=== PATIENT | female | born 1940 | race Caucasian/White ===

== ENCOUNTER 2016-11-02 06:25 | Observation (INO) | payer MEDICARE, BC ==
[~2016-11-02] VITALS: Ht 160 cm; Wt 64.6 kg
[2016-11-02] VITALS (17 sets, daily range): BP systolic 113–144; BP diastolic 54–79
[~2016-11-02 06:25] MED LIST: ASPI-482 PO; CHOL10003 PO; DOCU50CA9 PO; EZET10TA3 PO; FISH1CAP PO; RED600TA PO
[2016-11-02 06:59] LABS: HEMOGLOBIN 13.2 g/dL (12.0-15.5); RED BLOOD COUNT 4.44 x10^6/uL (3.50-5.40); RED CELL DISTRIBUTION WIDTH 13.8 % (11.5-14.5); WHITE BLOOD COUNT 8.9 x10^3/uL (4.0-11.0)
[2016-11-02] MEDS ORDERED: IV NORMAL SALINE 1000ML BAG 1,000 ML IV SCH (07:00)
[2016-11-02] MEDS ORDERED: IODIXANOL 320 MG/ML 100 ML VIAL. ONE ×2 (07:09→09:27)
[2016-11-02] MEDS ORDERED: LIDOCAINE 2% 20 ML VIAL. ONE (07:09)
[2016-11-02] MEDS ORDERED: METO25TA4 PO (07:11)
[2016-11-02] MEDS ORDERED: NAPR220C4 PO (07:11)
[2016-11-02 07:20] LABS: INR 1.1 (0.8-1.1); PROTHROMBIN TIME PATIENT 13.1 SEC (11.7-14.0)
[2016-11-02 07:37] LABS: CALCIUM 9.2 mg/dL (8.5-10.1); CREATININE 0.6 mg/dL (0.6-1.0); GFR 97.5; POTASSIUM 4.4 mmol/L (3.5-5.1)
[2016-11-02] MEDS ORDERED: LIDOCAINE 2% 20 ML VIAL. IJ ONE (08:00)
[2016-11-02] MEDS ORDERED: VERAPAMIL 5 MG/2 ML VIAL. IART ONE (08:00)
[2016-11-02] MEDS ORDERED: MIDAZOLAM HCL/PF 2 MG/2 ML VIAL. IV ONE (08:00)
[2016-11-02] MEDS ORDERED: NITROGLYCERIN 200 MCG/2 ML SYRINGE FOR CATH/VASC LAB. IART ONE (08:00)
[2016-11-02] MEDS ORDERED: FENTANYL PF 100 MCG/2 ML VIAL. IV ONE (08:00)
[2016-11-02] MEDS ORDERED: HEPARIN for IV BOLUS 10,000 UNIT/10 ML VIAL. IART ONE (08:00)
[2016-11-02] MEDS ORDERED: NITROGLYCERIN 200 MCG/2 ML SYRINGE FOR CATH/VASC LAB. ONE (08:18)
[2016-11-02] MEDS ORDERED: VERAPAMIL 5 MG/2 ML VIAL. ONE (08:18)
[2016-11-02] MEDS ORDERED: HEPARIN for IV BOLUS 10,000 UNIT/10 ML VIAL. ONE (08:18)
[2016-11-02] MEDS ORDERED: MIDAZOLAM HCL/PF 2 MG/2 ML VIAL. ONE ×2 (08:18→09:24)
[2016-11-02] MEDS ORDERED: FENTANYL PF 100 MCG/2 ML VIAL. ONE ×2 (08:19→09:24)
[2016-11-02] MEDS ORDERED: ADENOSINE 90 MG/30 ML VIAL. IV ONE (09:11)
[2016-11-02] MEDS ORDERED: ADENOSINE 90 MG in IV NORMAL SALINE 50ML 90 ML IV ONE (09:30)
[2016-11-02] MEDS ORDERED: BIVALIRUDIN 250 MG VIAL. IV ONE ×2 (09:42→10:15)
[2016-11-02] MEDS ORDERED: HEPARIN for IV BOLUS 10,000 UNIT/10 ML VIAL. IV ONE (10:00)
[2016-11-02] MEDS ORDERED: CLOPIDOGREL BISULFATE 75 MG TABLET ONE (10:00)
[2016-11-02] MEDS ORDERED: ASPIRIN 325 MG TABLET ONE ×2 (10:00→10:17)
[2016-11-02] MEDS ORDERED: ASPIRIN 325 MG TABLET PO ONE (10:15)
[2016-11-02] MEDS ORDERED: CLOPIDOGREL BISULFATE 75 MG TABLET PO ONE (10:15)
[2016-11-02] MEDS ORDERED: ACETAMINOPHEN 325 MG TABLET. PO PRN (10:30)
[2016-11-02] MEDS ORDERED: IODIXANOL 320 MG/ML 100 ML VIAL. IART ONE (10:30)
[2016-11-02] MEDS ORDERED: NITROGLYCERIN SUBLINGUAL 0.4 MG BOTTLE OF 25. SL PRN (10:30)
--- NOTE | 2016-11-02 10:30 | PDOC ---
MODERATE SEDATION ASSESSMENT RISKS/ALTERNATIVES Risks/Alternatives Risks and alternatives of this type of sedation and procedure discussed with: RISK/ALTERNATIVES: Patient H & P ON CHART H & P H & P on chart and reviewed for co-morbid conditions and appropriate labs. H&P ON CHART: Yes STATUS PREG STATUS ASSESSED: N/A MEDS/ALLERGIES REVIEWED Meds/Allergies Reviewed Medications and Allergies including time and route of recently administered narcotics and sedatives. MEDS/ALLERGIES REVIEWED: Yes ASA RATING ASA RATING: II AIRWAY ASSESSMENT Airway Assessment Airway patency, oral function limitations, presence of caps, crowns, dentures, partials, and ability to extend neck assessed. AIRWAY ASSESSMENT: Yes MALLAMPATI SCORE MALLAMPATI SCORE: II PRE-SEDATION ASSESSMENT PRE-SEDATION ASSESSMENT: Yes AILEEN BOB MD Nov 02, 2016 10:30
--- NOTE | 2016-11-02 10:52 | CARD ---
APPROVED REPORT Procedure(s) performed: 1. Left heart catheterization and selective coronary angiography via right t ransradial approach 2. Fractional flow reserve measurement the left anterior descending and right coronary arteries 3. Successful PCI/drug eluting stent placement to the left anterior descending artery INDICATION The indication(s) include : Unstable angina and positive stress test. PROCEDURE NARRATIVE After explaining the risks, benefits and alternative options, informed consent was obtained from felipe ent. Patient was brought to the cardiac Condominium Manager and his right wrist was prepped and draped in the us ual fashion after confirming a positive modified Timur's test. Arterial access was obtained in the [facility] radial artery and a 6 [place] sheath was inserted. 6 [place] JL 3.5 and 6 [place] JR4 catheters were used to perform selective angiography of the left and right coronary arteries after initial attempts to engage these vessels using 6 [place] Shamar catheter were unsuccessful. Left ventricular end-diast olic pressure and transaortic gradients remeasured. Left ventriculography was not performed due to re cent noninvasive assessment of ejection fraction. Since patient was found to have angiographically borderline significant stenoses involving the left anterior descending and right coronary arteries, a decision was made to assess the physiologic signif icance by performing fractional flow reserve measurement. The left main coronary artery was engaged w ith 6 [place] AL 0.75 guide catheter and the stenosis in the midsegment was crossed with [employer] Ver[employer] ta PressureWire. FFR measurement was made after administering intravenous adenosine per protocol. Thi s came back physiologically not significant at 0.79. This lesion was intervened upon as described bel ow. Subsequently, the right coronary artery was engaged with the same guide catheter and the ostial s egment stenosis was crossed with the same PressureWire and FFR measurement was made. This came back p hysiologically not significant at 0.86 and hence this was not intervened upon. FINDINGS 1. Hemodynamics: Left ventricle end-diastolic pressure 15 mmHg. No pullback gradient across the aor tic valve. 2. Coronary angiography: a. The left main coronary artery arose from the left sinus of Valsalva, gave rise to the left anteri or descending and left circumflex arteries and did not show any significant stenosis. b. The left anterior descending artery showed a widely patent stent in the midsegment. Just distal t o this stent, 60-70% stenosis was noted there was physiologically significant based on FFR measuremen t of 0.79. The diagonal branch showed widely patent stent in the proximal segment. There was a 50% st enosis noted in the midsegment. c. The left circumflex artery did not show any significant stenosis. d. The right coronary artery was a dominant vessel arising from the right sinus of Valsalva that miroslava wed 40% stenosis in the ostial segment with dampening of pressure waveform. This was however physiolo gically not significant based on FFR measurement of 0.86. INTERVENTION The left main coronary artery as previously engaged with AL 0.75 guide catheter for FFR measurement a s described above. Since the stenosis in the midsegment of the left anterior descending artery was fo und to be physiologically significant based on FFR measurement of 0.79, we decided to intervene on th e stenosis. This was successfully and directly treated with a 2.75 x 12 mm Xience Alpine drug-eluting stent that was advanced over the previously placed PressureWire. Follow-up angiography showed resolu tion of the stenosis to 0% with RHONDA-3 distal flow. Patient tolerated the procedure well. Hemostasis was achieved using TR band. There were no immediate complications. Conclusion 1. Patent previously placed stents in the left anterior descending artery and the diagonal branch. 6 0-70% stenosis involving the midsegment of the left anterior descending artery with FFR significant a t 0.79. 40% stenosis involving the ostial segment of the right coronary artery with FFR not significa nt at 0.86. 2. Successful PCI/drug eluting stent placement to the left anterior descending artery. Recommendations 1. Aspirin 325 mg daily 2. Plavix 75 mg daily for preferably one year 3. Cardiovascular risk factor modification.
[2016-11-02] MEDS: METOPROLOL TART IMMED RELEASE 25 MG TABLET. PO SCH ×2 (11:30→20:42)
[2016-11-02] MEDS ORDERED: hydrALAZINE 20 MG/ML VIAL. IVP PRN (13:30)
[2016-11-02] MEDS: EZETIMIBE 10 MG TABLET. PO SCH (14:22)
[2016-11-02] MEDS: IV 1/2 NORMAL SALINE 1,000 ML IV SCH (18:01)
[2016-11-03 03:05] VITALS: BP 136/66
[2016-11-03] MEDS: IV 1/2 NORMAL SALINE 1,000 ML IV SCH ×2 (03:45→06:30)
[2016-11-03 06:40] LABS: CALCIUM 8.8 mg/dL (8.5-10.1); CREATININE 0.6 mg/dL (0.6-1.0); GFR 97.5; POTASSIUM 3.6 mmol/L (3.5-5.1)
[2016-11-03 07:00] VITALS: BP 118/69
[2016-11-03] MEDS ORDERED: CLOPIDOGREL BISULFATE 75 MG TABLET PO SCH (08:00)
[2016-11-03] MEDS ORDERED: ASPIRIN ENTERIC COATED 325 MG TABLET.DR. PO SCH (08:00)
[2016-11-03] MEDS: EZETIMIBE 10 MG TABLET. PO SCH (09:22)
[2016-11-03] MEDS: METOPROLOL TART IMMED RELEASE 25 MG TABLET. PO SCH (09:23)
[2016-11-03 11:00] VITALS: BP 141/68
--- NOTE | 2016-11-03 23:10 | DS ---
DATE OF DISCHARGE: 11/03/2016 ADMITTING DIAGNOSES: 1. Coronary artery disease with recurrent angina. 2. Hypertension. 3. Dyslipidemia with intolerance to statins. 4. Venous insufficiency. DISCHARGE DIAGNOSES: 1. Coronary artery disease with drug-eluting stent to the mid left anterior descending. 2. Hypertension. 3. Dyslipidemia. 4. Venous insufficiency. BRIEF SUMMARY: This is a 76-year-old female with a history of coronary artery disease and a previous intervention and stent to the LAD and diagonal branch, who presented to the office on 10/28/2016 with complaints of recurrent angina similar to what she had prior to her previous procedure. She had no other associated symptoms. Repeat echo had shown normal LV systolic function and a recent nuclear stress test using regadenoson demonstrated a small amount of anterior apical wall ischemia. Cardiac catheterization was recommended and the patient agreed to proceed. She underwent cardiac catheterization on 11/02/2016 with placement of a Xience drug-eluting stent, 2.75 mm x 12 mm, to the mid LAD. For full cardiac catheterization results, please see the report. The patient was monitored overnight and has had no recurrence of her chest pain. There are no dysrhythmias demonstrated on telemetry. The patient will be discharged home on dual antiplatelet therapy to include aspirin 324 mg daily as well as clopidogrel 75 mg daily. The patient has been advised to hold her naproxen while she is on dual antiplatelet therapy. She will be seen in the office in approximately a month on 12/02/2016. DISCHARGE MEDICATIONS: 1. Metoprolol tartrate 25 mg half tablet b.i.d. 2. Aspirin 324 mg daily. 3. Clopidogrel 75 mg p.o. daily. 4. Vitamin D 3000 International Units 1 tab daily. 5. Zetia 10 mg daily. 6. Naproxen 220 mg daily or p.r.n. was discontinued. DIET: Cardiac diet with low sodium and low cholesterol. ____ DISPOSITION: Discharge. ACTIVITY: The patient has been asked to avoid soaking her right hand in water for a prolonged period for the next 2 weeks. She has also been advised not to lift more than 5 pounds with the right hand for the next 10-14 days. AILEEN BOB MD DR: REGLA/eliane JOB#: [id number] / [id number] AZUL Montenegro MD
== END 2016-11-03 13:40 | disposition home or self-care (01) ==
LOC: CCL 06:25 → 2 NORTH 10:12
PROVIDERS: ADMIT Internal Medicine Cardiovascular Disease; ATTEND Internal Medicine Cardiovascular Disease
DX: I25.119 Atherosclerotic heart disease of native coronary artery with unspecified angina pectoris (principal); R94.39 Abnormal result of other cardiovascular function study; I10 Essential (primary) hypertension; E78.5 Hyperlipidemia, unspecified; I87.2 Venous insufficiency (chronic) (peripheral); Z79.82 Long term (current) use of aspirin
CPT/HCPCS: 36415; 80048; 85027; 85610; 85730; 93458; 93571; 93572; 96365; 96375; C1769; C1874; C1887; C1892; C9600; G0378; G0379; J0153; J0583; J1644; J2250; J3010; J3490; J7030; 92928; 96374

== ENCOUNTER → 2017-09-13 | Outpatient (CLI) | payer MEDICARE, BC ==
[2017-09-13] MEDS: REGADENOSON 0.4 MG/5 ML DISP.SYRIN. IV ×2 (08:45)
== END | disposition home or self-care (01) ==
LOC: NM 07:29
DX: I08.1 Rheumatic disorders of both mitral and tricuspid valves (principal); I27.20 Pulmonary hypertension, unspecified; I25.10 Atherosclerotic heart disease of native coronary artery without angina pectoris; I45.10 Unspecified right bundle-branch block
CPT/HCPCS: 78452; 93017; 93306; 96374; 96375; 96376; A9500; J2785

== ENCOUNTER → 2019-09-24 | Outpatient (CLI) | payer MEDICARE, BC ==
[~2019-09-24] MED LIST changes: +EZET10TA20 PO; -EZET10TA3 PO; +METO25TA4 PO; +NAPR220C4 PO; +REGADENOSON 0.4 MG/5 ML DISP.SYRIN. IV ONE
[2019-09-24 09:43] LABS: CHOLESTEROL/HDL RATIO 3.5
--- NOTE | 2019-09-24 10:38 | CARD ---
MR#: [id number] Date of Study: 09/24/2019 Ordering Physician: AILEEN BOB, Referring Physician: AILEEN BOB, Tech: Karen Cavanaughgamal APPROVED REPORT EXAM: Two-dimensional and M-mode echocardiogram with Doppler and color Doppler. Other Information Quality : GoodHR: 71bpm INDICATION Cardiac Disease: CAD RISK FACTORS Hypertension Hyperlipidemia 2D DIMENSIONS RVDd3.2 (2.9-3.5cm)Left Atrium(2D)4.0 (1.6-4.0cm) IVSd1.4 (0.7-1.1cm)Aortic Root(2D)3.1 (2.0-3.7cm) LVDd3.9 (3.9-5.9cm)LVOT Diameter1.9 (1.8-2.4cm) PWd1.2 (0.7-1.1cm)LVDs2.4 (2.5-4.0cm) FS (%) 37.8 %SV45.2 ml LVEF(%)68.5 (>50%) Aortic Valve AoV Peak Mika.203.4cm/sAoV VTI44.0cm AO Peak GR.16.6mmHgLVOT Peak Mika.147.6cm/s LVOT VTI 37.42cmAO Mean GR.9mmHg BRANDON (VMAX)1.08ml0ISH (VTI)2.29cm2 Mitral Valve MV E Ydiimzzx629.6cm/sMV E Peak Gr.117mmHg MV DECEL [id number] A Rlzsjulh539.3cm/s MV E Mean Gr.3mmHgMV PHW72lu E/A Ratio0.9MVA (PHT)2.54cm2 TDI E/Lateral E'21.3E/Medial E'22.6 Pulmonary Valve PV Peak Aizbcrcq559.2cm/sPV Peak Grad.5mmHg Tricuspid Valve TR P. Qscsfuch370do/sRAP XSBGYDIE2zcLg TR Peak Gr.83npHtMRUF81fbJt Pulmonary Vein S1 Irurqhrk27.6cm/sD2 Gbyjppms18.8cm/s PVa [id number] LEFT VENTRICLE The left ventricle is normal size. There is mild to moderate concentric left ventricular hypertrophy. The left ventricular systolic function is normal. The Ejection Fraction is 60-65%. There is normal L V segmental wall motion. Transmitral Doppler flow pattern is Grade I-abnormal relaxation pattern. RIGHT VENTRICLE The right ventricle is normal size. There is normal right ventricular wall thickness. The right ventr icular systolic function is normal. ATRIA The left atrium is borderline dilated. The right atrium size is normal. The interatrial septum is int act with no evidence for an atrial septal defect or patent foramen ovale as noted on 2-D or Doppler i maging. AORTIC VALVE The aortic valve is moderately calcified Doppler and Color Flow revealed trace aortic regurgitation. Calculated aortic valve area is 2.2 cm2 with maximum pressure gradient of 18 mmHg and mean pressure g radient of 10 mmHg. MITRAL VALVE The mitral valve is thickened but opens well. There is no evidence of mitral valve prolapse. There is no mitral valve stenosis. Doppler and Color-flow revealed trace to mild mitral regurgitation. TRICUSPID VALVE The tricuspid valve is normal in structure and function. Doppler and Color Flow revealed mild tricusp id regurgitation with an estimated PAP of 37 mmHg. There is no tricuspid valve stenosis. PULMONIC VALVE The pulmonary valve is normal in structure and function. Doppler and Color Flow revealed trace pulmon ic valvular regurgitation. GREAT VESSELS The aortic root is normal in size. The ascending aorta is normal in size. The IVC is normal in size a nd collapses >50% with inspiration. PERICARDIAL EFFUSION There is no evidence of significant pericardial effusion. Critical Notification Critical Value: No <Conclusion> The left ventricular systolic function is normal. The Ejection Fraction is 60-65%. There is normal LV segmental wall motion. Transmitral Doppler flow pattern is Grade I-abnormal relaxation pattern. Trace to mild mitral regurgitation. Mild tricuspid regurgitation with an estimated PAP of 37 mmHg. There is no evidence of significant pericardial effusion. Signed by : Aileen Bob, Electronically Approved : 09/24/2019 10:38:23
--- NOTE | 2019-09-24 12:53 | RAD ---
MR#: [id number] Date of Study: 09/24/2019 Ordering Physician: AILEEN BOB, Referring Physician: DAKOTAH SUÁREZ Tech: RT Tima Pinedo) (N) APPROVED REPORT Test Type: Pharmacological Stress Nurse/Tech: Bhavna Strickland R.N. Test Indications: cad, fatigue Cardiac History: 3 stents 2011, htn, Medications: see ehr Medical History: see ehr Resting ECG: sr with blocks noted see printout Resting Heart Rate: 66 bpm Resting Blood Pressure: 138/66mmHg Pretest Chest Pain: No chest pain Nurse/Tech Notes lungs cta, heart tones regular Consent: The procedure was explained to the patient in lay terms. Informed consent was witnessed. Claus eout was entered into [employer]. History and Stress Test performed by RT Shahida (Vivian) (N) Pharm. Details Pharmacologic stress testing was performed using 0.4mg per 5ml of regadenoson given intravenously ove r 7-10 seconds. Stress Symptoms No chest pain or symptoms. POST EXERCISE Reason for Termination: Infusion complete Target HR: No Max HR: 114 bpm Max Blood Pressure: 133/59mmHg Chest Pain: No. Arrhythmia: No. ST Change: No. INTERPRETATION Stress EKG Conclusion: Baseline EKG showed sinus rhythm with IVCD. Non-diagnostic changes at peak st ress. No arrhythmias. Imaging Protocol IMAGE PROTOCOL: Rest Tc-99m/stress Tc-99m 1 day Rest: Stress: Viability: Radiopharm.Tc99m RquadhiigRi43b Sestamibi Dose10.9mCi 31.7mCi Duration 13min. 13min. Img Date 09/24/2019 09/24/2019 Inj-Img Lxzj51bfv. 60min. Rest Admin Site:IV - Left HandAdministrator:RT Tima Pinedo)(N) Stress Admin Site: IV - Left HandAdministrator: RT Tima Pinedo)(N) STRESS DATA End Diast. Vol.68.0mlLVEDV index BSA41.0ml End Syst. Vol.11.0mlLVESV index BSA7.0ml Myocardial Zymk225.0gEject. Enxbddfa89.0% Stress Scores Regional WT1.00Summed WT8.00 Regional WM0.00Summed WM1.00 Study quality was good. Left Ventricular size was Normal at Rest and Stress. Lung uptake was . Left Ventricular ejection fraction is 84%. The rest and stress images show normal perfusion, normal contraction and thickening. LV Perf. Quant 17 Seg. SSS0.00 17 Seg. SRS2.00 17 Seg. SDS0.00 Stress Defect Extent (% LAD)0.00Rest Defect Extent (% LAD)0.00Rev. Defect Extent (% LAD)0.00 Stress Defect Extent (% LCX) 0.00Rest Defect Extent (% LCX)0.00Rev. Defect Extent (% LCX)0.00 Stress Defect Extent (% RCA)0.00Rest Defect Extent (% RCA)15.60Rev. Defect Extent (% RCA)0.00 Stress Defect Extent (% CAROLYN)0.00Rest Defect Extent (% CAROLYN)3.00Rev. Defect Extent (% CAROLYN)0.00 Conclusion 1. Regadenoson cardioisotope stress test did not show any evidence of ischemia or infarct. 2. Normal left ventricular systolic function with ejection fraction calculated at 84%. 3. Low risk for cardiac events. Signed by : Aileen Bob, Electronically Approved : 09/24/2019 12:52:38
== END ==
LOC: ECHO 07:27
PROVIDERS: ATTEND Internal Medicine Cardiovascular Disease
DX: I08.3 Combined rheumatic disorders of mitral, aortic and tricuspid valves (principal); I11.9 Hypertensive heart disease without heart failure; I25.10 Atherosclerotic heart disease of native coronary artery without angina pectoris; E78.5 Hyperlipidemia, unspecified
CPT/HCPCS: 36415; 78452; 80061; 93017; 93306; A9500; J2785